=== PATIENT | female | born 2000 | race Caucasian/White ===

== ENCOUNTER 2019-03-30 10:18 | Outpatient (CLI) | payer MEDICAID ==
[~2019-03-30] VITALS: Ht 157.5 cm; Wt 63.8 kg
[2019-03-30 11:07] VITALS: Ht 157.5 cm; Wt 63.8 kg
--- NOTE | 2019-03-30 13:30 | TRIAGE ---
OB Triage Datetime Report Generated by CPN: 03/30/2019 13:29 Datetime: 03/30/2019 13:23 Stage of : OB Triage Maternal Assessment Level of Consciousness: Keenly Alert, Responsive DTR's/Clonus: DTRs 1+ Headache: Denies Breath Sounds, Left: Clear and Equal Breath Sounds, Right: Clear and Equal Nausea/Vomiting: Denies RUQ Epigastric Pain: Denies Labor Evaluation Frequency: NONE Monitor Mode: External Heart Rate FHR Baseline Rate: 140 Monitor Mode: External US Variability: Moderate 6-25 bpm Accelerations: 15X15 Decelerations: None Pain Assessment Pain Scale: 0 Pain Presence: None/Denies Pain Type: N/A Pain Location: Back Pain Goal: 3 Pain Relief Measures: Pain Medication Given Membrane Status: Intact Datetime: 03/30/2019 13:00 Stage of : OB Triage Maternal Assessment Level of Consciousness: Keenly Alert, Responsive DTR's/Clonus: DTRs 1+ Headache: Denies Breath Sounds, Left: Clear and Equal Breath Sounds, Right: Clear and Equal Nausea/Vomiting: Denies RUQ Epigastric Pain: Denies Labor Evaluation Frequency: NONE Monitor Mode: External Heart Rate FHR Baseline Rate: 140 Monitor Mode: External US Variability: Moderate 6-25 bpm Accelerations: 15X15 Decelerations: None Category: Category I Pain Assessment Pain Scale: 0 Pain Presence: None/Denies Pain Type: N/A Pain Location: Back Pain Goal: 3 Pain Relief Measures: Pain Medication Given Membrane Status: Intact Datetime: 03/30/2019 12:32 Stage of : OB Triage Maternal Assessment Level of Consciousness: Keenly Alert, Responsive DTR's/Clonus: DTRs 1+ Headache: Denies Breath Sounds, Left: Clear and Equal Breath Sounds, Right: Clear and Equal Nausea/Vomiting: Denies RUQ Epigastric Pain: Denies Labor Evaluation Frequency: NONE Monitor Mode: External Heart Rate FHR Baseline Rate: 135 Monitor Mode: External US Variability: Moderate 6-25 bpm Accelerations: 15X15 Decelerations: None Category: Category I Pain Assessment Pain Scale: 0 Pain Presence: None/Denies Pain Type: N/A Pain Location: Back Pain Goal: 3 Pain Relief Measures: Pain Medication Given Membrane Status: Intact Datetime: 03/30/2019 12:00 Stage of : OB Triage Maternal Assessment Level of Consciousness: Keenly Alert, Responsive DTR's/Clonus: DTRs 1+ Headache: Denies Breath Sounds, Left: Clear and Equal Breath Sounds, Right: Clear and Equal Nausea/Vomiting: Denies RUQ Epigastric Pain: Denies Labor Evaluation Frequency: x2 Monitor Mode: External Duration (sec)2399: 80 Quality: Mild Pattern: Normal: <= 5 Contractions in 10 Minutes Heart Rate FHR Baseline Rate: 140 Monitor Mode: External US Variability: Moderate 6-25 bpm Accelerations: 15X15 Decelerations: None Category: Category I Pain Assessment Pain Scale: 0 Pain Presence: None/Denies Pain Type: N/A Pain Location: Back Pain Goal: 3 Pain Relief Measures: Pain Medication Given Membrane Status: Intact Datetime: 03/30/2019 11:00 Assessment Type: Triage Maternal Assessment Level of Consciousness: Keenly Alert, Responsive DTR's/Clonus: DTRs 2+; No Clonus Headache: Denies Blurred Vision: No Respiratory Effort: Unlabored; Regular Rhythm; Equal Expansion Breath Sounds, Left: Clear and Equal Breath Sounds, Right: Clear and Equal Nausea/Vomiting: Denies RUQ Epigastric Pain: Denies Lower Extremities Edema: None Degree: None Upper Extremities Edema: None Degree: None Facial Edema: None Fall Risk Assessment History of Falling: (0) No Secondary Diagnosis: (0) No Ambulatory Aid: (0) Bedrest/Nurse Assist IV Therapy: (0) No Gait: (0) Normal/Bedrest/Immobile Mental Status: (0) Oriented to Own Ability Fall Score: 0 Fall Risk Score Definition: No Risk: No action required Datetime: 03/30/2019 10:59 Stage of : OB Triage Maternal Assessment Level of Consciousness: Keenly Alert, Responsive DTR's/Clonus: DTRs 1+ Headache: Denies Blurred Vision: No Respiratory Effort: Unlabored Breath Sounds, Left: Clear and Equal Breath Sounds, Right: Clear and Equal Nausea/Vomiting: Denies RUQ Epigastric Pain: Denies Facial Edema: None Labor Evaluation Frequency: NONE Monitor Mode: External Resting Tone [place]: Relaxed Heart Rate FHR Baseline Rate: 140 Monitor Mode: External US Variability: Moderate 6-25 bpm Accelerations: 15X15 Decelerations: None Category: Category I Pain Assessment Pain Scale: 0 Pain Presence: None/Denies Pain Type: N/A Pain Location: Back Pain Goal: 3 Pain Relief Measures: Pain Medication Given Membrane Status: Intact Datetime: 03/30/2019 10:50 Vaginal Exam Dilatation (cms): 0.0 Effacement (%): 0 Station: -3 Exam By: PAT CESAR Vaginal Bleeding: None Cervix, Consistency: Soft Cervix, Position: Posterior Presentation 'A': Cephalic Datetime: 03/30/2019 10:30 EGA: 33.2 Datetime: 03/30/2019 10:13 Time of Arrival: 03/30/2019 10:13 EGA: 33.2 Arrived By: Ambulatory Arrived From: Home Chief Complaint: R/O LABOR Movement: Present Contractions: Denies/Absent Rupture of Membranes: Denies Vaginal Discharge: Denies Recent Sexual Intercouse: Denies Abdominal Trauma: Not Applicable Additional Patient Complaints: NONE Time Provider Notified: 03/30/2019 11:00 Provider Notified: JANETH Initial Plan: NST, BPP, DIANNA, UA
--- NOTE | 2019-03-30 19:10 | PN ---
Triage Information Date/Time March 30, 2019 Reason for visit: Weeks of Gestation 33 weeks and 2 days /Para Diabetes: none Hypertention: none Additional information 18 years old F3 P2 Objective Heart Rate: 130's Contractions: None Exam GA: A&O, NAD Abdomen: Soft, tender: No rebound tenderness, no guarding, no rigidity, size consistent with dates. UA normal BPP: 8/8 DIANNA: 12.3 SVE: C/ Think and high Results/Medications Results 24 hrs Laboratory Tests Test 03/30/19 11:00 Urine Color STRAW Urine Clarity CLEAR Urine pH 7.0 Urine Specific [place] 1.001 L Urine Ketones NEGATIVE Urine Nitrite NEGATIVE Urine Bilirubin NEGATIVE Urine Urobilinogen NEGATIVE Urine Leukocyte Esterase NEGATIVE Urine Microscopic RBC 0 Urine Microscopic WBC 0 Urine Hemoglobin 1+ H Urine Glucose NEGATIVE Urine Total Protein NEGATIVE Disposition: Discharge Assessment/Plan IUP art 33 weeks and 2 days No evidence of labor testing reassuring, NST/ BPP reassuring. No evidence of PPROM. Patient discharged home in stable condition Patient advised to have a follow-up within 48 hours with primary OB office or sooner as needed Adequate hydration discussed with the patient EULALIO FOWLER MD Mar 30, 2019 19:10
== END 2019-03-30 13:24 | disposition home or self-care (01) ==
LOC: EDBD → OBT 10:18 → L-D 10:19 → OBT 13:24
PROVIDERS: ATTEND Obstetrics & Gynecology
DX: O26.893 Other specified pregnancy related conditions, third trimester (principal); R10.9 Unspecified abdominal pain; Z3A.33 33 weeks gestation of pregnancy
CPT/HCPCS: 76818; 81001; Z7500; G0463

== ENCOUNTER 2019-05-06 00:35 | Inpatient (IN) | payer MEDICAID ==
[~2019-05-06] VITALS: Ht 154.9 cm; Wt 66.5 kg
[~2019-05-06 00:35] MED LIST: DOCU-144 PO; IBUP-1542 PO
[2019-05-06 01:13] VITALS: Ht 154.9 cm; Wt 66.5 kg
[2019-05-06 01:14] VITALS: BP 118/72; PULSE 62; RESP 17
[2019-05-06] MEDS ORDERED: LACTATED RINGER'S 1,000 ML IV PRN (01:23)
[2019-05-06] MEDS ORDERED: LACTATED RINGER'S 1,000 ML IV SCH (01:23)
[2019-05-06] MEDS ORDERED: AMPICILLIN 2 GM/NS (PMX) 100 ML IV ONE (01:30)
[2019-05-06] MEDS ORDERED: METHYLERGONOVINE 0.2 MG INJ IM PRN (01:30)
[2019-05-06] MEDS ORDERED: MINERAL OIL LIGHT 10 ML VIAL TOP ONE (01:30)
[2019-05-06] MEDS ORDERED: IBUPROFEN 600 MG TAB PO PRN (01:30)
[2019-05-06] MEDS ORDERED: OXYTOCIN 30 UNITS/LR 500 ML IV SCH ×3 (01:30→04:28)
[2019-05-06] MEDS ORDERED: BUTORPHANOL 2 MG INJ IV PRN ×2 (01:30)
[2019-05-06] MEDS ORDERED: MISOPROSTOL 200 MCG TAB PR PRN ×2 (01:30→04:30)
[2019-05-06] MEDS ORDERED: OXYTOCIN 30 UNITS/LR 500 ML IV PRN ×3 (01:30→04:30)
[2019-05-06] MEDS ORDERED: LIDOCAINE 1% (MPF) 30 ML INJ INJ PRN (01:30)
[2019-05-06] MEDS ORDERED: CARBOPROST 250 MCG INJ IM PRN ×2 (01:30→04:30)
[2019-05-06] MEDS ORDERED: MINERAL OIL LIGHT 10 ML VIAL TOP PRN (03:00)
[2019-05-06] MEDS: LACTATED RINGER'S 1,000 ML IV* SCH ×3 (04:28→18:37)
[2019-05-06] MEDS ORDERED: BENZOCAINE 20% 56 ML SPRAY TOP PRN (04:30)
[2019-05-06] MEDS ORDERED: LANOLIN HPA 1 PKT TOP PRN (04:30)
[2019-05-06] MEDS ORDERED: ONDANSETRON 4 MG INJ IV PRN (04:30)
[2019-05-06] MEDS ORDERED: DIBUCAINE 1% 30 GM OINT TOP PRN (04:30)
[2019-05-06] MEDS ORDERED: MAGNESIUM HYDROXIDE 30ML CUP PO PRN (04:30)
[2019-05-06] MEDS ORDERED: ACETAMINOPHEN 325 MG TAB PO PRN ×2 (04:30)
[2019-05-06] MEDS ORDERED: WITCH HAZEL/GLYCERIN PAD PR PRN (04:30)
[2019-05-06] MEDS: METHYLERGONOVINE 0.2 MG INJ IM PRN ×2 (05:03→06:14)
[2019-05-06] MEDS ORDERED: AMPICILLIN 1 GM/NS (PMX) 50 ML IV SCH (05:30)
[2019-05-06 09:10] VITALS: BP 142/80; PULSE 64; RESP 19
[2019-05-06 16:00] VITALS: BP 126/83; PULSE 59; RESP 18
[2019-05-06 19:45] VITALS: BP 118/78; PULSE 60; RESP 20
[2019-05-06] MEDS: SENNA/DOCUSATE NA (8.6MG/50MG) TAB PO PRN (23:47)
[2019-05-06] MEDS: IBUPROFEN 600 MG TAB PO PRN (23:48)
[2019-05-07 04:30] VITALS: BP 115/78; PULSE 60; RESP 20
[2019-05-07] MEDS: LACTATED RINGER'S 1,000 ML IV* SCH (05:49)
[2019-05-07 08:00] VITALS: BP 113/78; PULSE 53; RESP 18
[2019-05-07] MEDS: SENNA/DOCUSATE NA (8.6MG/50MG) TAB PO PRN ×2 (09:30→23:27)
[2019-05-07 16:00] VITALS: BP 111/79; PULSE 61; RESP 18
[2019-05-07 20:00] VITALS: BP 117/70; PULSE 71; RESP 20
[2019-05-07] MEDS: IBUPROFEN 600 MG TAB PO PRN (23:27)
[2019-05-08 03:52] VITALS: BP 115/74; PULSE 54; RESP 20
[2019-05-08] MEDS: IBUPROFEN 600 MG TAB PO PRN (06:07)
[2019-05-08 07:30] VITALS: BP 112/63; PULSE 77; RESP 18
== END 2019-05-08 17:30 | disposition home or self-care (01) | DRG 807 ==
LOC: OBT 00:35 → L-D 00:37 → OBT 01:20 → PP1 09:06
PROVIDERS: ADMIT Obstetrics & Gynecology; ATTEND Obstetrics & Gynecology
PROC: 10E0XZZ Delivery of Products of Conception, External Approach (ICD-10-PCS; principal; 2019-05-06)
DX: O80 Encounter for full-term uncomplicated delivery (principal); Z37.0 Single live birth; Z3A.38 38 weeks gestation of pregnancy
CPT/HCPCS: 81001; 85025; 85610; 85730; 86592; 86850; 86900; 86901; 87340; G0463; J0290; J0595; J2210; J2590; J7120